=== PATIENT | male | born 1965 | race Caucasian/White ===

== ENCOUNTER → 2019-10-10 07:57 | Outpatient (CLI) | payer BC, SELFPAY ==
--- NOTE | ~2019-10-10 | MR_ITS ---
EXAMINATION: MR brain/brain stem wo/w con DATE: 10/10/2019 08:44 INDICATION: Memory changes. Worsening cognitive issues TECHNIQUE: Magnetic resonance imaging (MRI) of the brain and brainstem was performed without and with 19 mL Multihance intravenous contrast. Sequences included sagittal and axial T1-weighted SE, axial d iffusion-weighted FS SE, axial T2*-weighted GRE, axial T2-weighted FLAIR, and axial T2-weighted FSE. Postcontrast axial and coronal T1-weighted SE was obtained. Apparent diffusion coefficient (ADC) maps were created. COMPARISON: None. FINDINGS: There are no areas of restricted diffusion to suggest acute infarction. No intracranial hemorrhage or abnormal intracranial mass lesion. There are no intraparenchymal signal abnormalities seen on the ot her pulse sequences. The ventricles are symmetric and normal in size. There are no abnormal extra-axi al fluid collections. Flow voids are seen in the cerebral arteries on the T2-weighted sequences consi stent with their expected patency. Mild mucosal thickening in the bilateral ethmoid sinuses. Visualiz ed orbits and soft tissues are unremarkable. There are no areas of abnormal enhancement on the post c ontrast images. IMPRESSION: 1. Normal brain. No acute intracranial process or abnormally enhancing lesions. Reviewed, dictated and finalized at location A.
[2019-10-10 08:28] LABS: Estimated Glomerular Filt Rate > 60
== END ==
PROVIDERS: Visit Provider Physician Assistant
DX: R41.3 Other amnesia (principal)
CPT/HCPCS: 36415; 70553; A9577